=== PATIENT | female | born 1980 | race Two or more races ===

== ENCOUNTER 2018-06-26 12:27 | Inpatient (IN) | payer OTHER ==
[2018-06-26] MEDS ORDERED: CARBOPROST 250 MCG INJ IM ×2 (13:30→20:00)
[2018-06-26] MEDS ORDERED: OXYTOCIN 30 UNITS/LR 500 ML IV ×5 (13:30→20:00)
[2018-06-26] MEDS ORDERED: METHYLERGONOVINE 0.2 MG INJ IM ×2 (13:30→20:00)
[2018-06-26] MEDS ORDERED: MISOPROSTOL 200 MCG TAB PR ×2 (13:30→20:00)
[2018-06-26] MEDS ORDERED: CEFAZOLIN 2 GM/50 ML (PMX) 50 ML IV (13:30)
[2018-06-26 13:42] LABS: ADD MAN DIFF? NO
[2018-06-26 13:46] LABS: BASOPHILS % 0.3 % (0.0-2.0); EOSINOPHILS # 0.1 10^3/ul (0.0-0.5); LYMPHOCYTES # 2.3 10^3/ul (0.8-2.9); MEAN CORPUSCULAR HEMOGLOBIN 27.3 pg (29.0-33.0); MEAN CORPUSCULAR HGB CONC 31.4 g/dl (32.0-37.0); MEAN CORPUSCULAR VOLUME 86.8 fl (82.0-101.0); MEAN PLATELET VOLUME 10.7 fl (7.4-10.4); MONOCYTE # 0.7 10^3/ul (0.3-0.9); MONOCYTES % 4.9 % (0.0-11.0); NEUTROPHIL # 11.1 10^3/ul (1.6-7.5); NEUTROPHILS % 76.1 % (39.0-77.0); PLATELET COUNT 273 10^3/UL (140-415); RED BLOOD COUNT 4.03 10^6/ul (4.20-5.40); RED CELL DISTRIBUTION WIDTH 15.2 % (11.5-14.5)
[2018-06-26 13:46] LABS: WHITE BLOOD COUNT 14.6 10^3/ul (4.8-10.8)
[2018-06-26 14:11] LABS: INR 1.02; PARTIAL THROMBOPLASTIN TIME 26.5 Sec (23.0-35.0); PROTIME 13.5 Sec (11.9-14.9); PT RATIO 1.1
[2018-06-26] MEDS: LACTATED RINGER'S 1,000 ML IV ×3 (14:26→20:17)
[2018-06-26] MEDS ORDERED: METOCLOPRAMIDE 10 MG INJ (14:40)
[2018-06-26] MEDS ORDERED: KETOROLAC 30 MG INJ (14:40)
[2018-06-26] MEDS ORDERED: ONDANSETRON 4 MG INJ (14:40)
[2018-06-26] MEDS ORDERED: FENTAnyl 50 MCG/ML VIAL (15:10)
[2018-06-26] MEDS ORDERED: MIDAZOLAM 1 MG/ML 2 ML INJ (15:11)
[2018-06-26] MEDS ORDERED: PROPOFOL 20 ML ×3 (15:46→15:47)
[2018-06-26 16:17] LABS: RAPID PLASMA REAGIN NONREACTIVE (NR)
[2018-06-26] MEDS ORDERED: NALOXONE (0.4 MG/ML) INJ IV (16:30)
[2018-06-26] MEDS ORDERED: morphine 2 MG INJ IV ×3 (16:30)
[2018-06-26] MEDS ORDERED: ONDANSETRON 4 MG INJ IV ×2 (16:30)
[2018-06-26] MEDS ORDERED: morphine (1 MG/ML) 10ML SYRINGE IV ×3 (16:30)
[2018-06-26] MEDS ORDERED: METOCLOPRAMIDE 10 MG INJ IV (16:30)
[2018-06-26] MEDS ORDERED: KETOROLAC 30 MG INJ IV (16:30)
[2018-06-26] MEDS: HYDROmorphONE 2 MG/ML SYG IV (17:02)
[2018-06-26 17:06] LABS: HEPATITIS B SURFACE ANTIGEN NEGATIVE (NEGATIVE)
[2018-06-26] MEDS: SOD CHLORIDE 0.9% 1,000 ML IV (17:40)
[2018-06-26] MEDS: AZITHROMYCIN 500MG/NS (PMX) 250 ML IVPB (18:10)
[2018-06-26] MEDS: CEFAZOLIN 2 GM/50 ML (PMX) 50 ML IV (20:16)
[2018-06-26] MEDS: LANOLIN 7 GM TUBE TOP (20:16)
[2018-06-26] MEDS: SENNA/DOCUSATE NA (8.6MG/50MG) TAB PO (20:16)
[2018-06-26] MEDS: KETOROLAC 30 MG INJ IV (21:52)
[2018-06-26] MEDS: IBUPROFEN 800 MG TAB PO (22:00)
[2018-06-27] MEDS: CLINDAMYCIN 300 MG CAP PO ×6 (00:16→18:45)
[2018-06-27] MEDS: CEFAZOLIN 2 GM/50 ML (PMX) 50 ML IV ×2 (03:39→12:08)
[2018-06-27] MEDS: KETOROLAC 30 MG INJ IV ×2 (03:44→12:06)
[2018-06-27] MEDS: LACTATED RINGER'S 1,000 ML IV ×6 (05:27→21:56)
[2018-06-27] MEDS: DIPHENHYDRAMINE 50 MG INJ IV (05:35)
[2018-06-27] MEDS: IBUPROFEN 800 MG TAB PO ×3 (06:00→22:00)
[2018-06-27 08:34] LABS: ADD MAN DIFF? NO
[2018-06-27 08:42] LABS: BASOPHILS % 0.2 % (0.0-2.0); EOSINOPHILS # 0.1 10^3/ul (0.0-0.5); HEMATOCRIT 30.7 % (37.0-47.0); HEMOGLOBIN 9.6 g/dl (12.0-16.0); LYMPHOCYTES # 1.6 10^3/ul (0.8-2.9); LYMPHOCYTES % 12.2 % (15.0-51.0); MEAN CORPUSCULAR HEMOGLOBIN 27.7 pg (29.0-33.0); MEAN CORPUSCULAR HGB CONC 31.3 g/dl (32.0-37.0); MEAN CORPUSCULAR VOLUME 88.5 fl (82.0-101.0); MEAN PLATELET VOLUME 10.8 fl (7.4-10.4); MONOCYTE # 0.7 10^3/ul (0.3-0.9); MONOCYTES % 5.1 % (0.0-11.0); NEUTROPHIL # 10.5 10^3/ul (1.6-7.5); NEUTROPHILS % 80.7 % (39.0-77.0); PLATELET COUNT 221 10^3/UL (140-415); RED BLOOD COUNT 3.47 10^6/ul (4.20-5.40); RED CELL DISTRIBUTION WIDTH 15.7 % (11.5-14.5)
[2018-06-27] MEDS: SENNA/DOCUSATE NA (8.6MG/50MG) TAB PO ×2 (09:16→20:50)
[2018-06-27] MEDS: BISACODYL 10 MG SUPP PR (10:30)
[2018-06-27 15:37] LABS: ADD MAN DIFF? NO
[2018-06-27 15:40] LABS: WHITE BLOOD COUNT 13.9 10^3/ul (4.8-10.8)
[2018-06-27 15:40] LABS: BASOPHILS % 0.2 % (0.0-2.0); EOSINOPHILS # 0.1 10^3/ul (0.0-0.5); EOSINOPHILS % 0.9 % (0.0-7.0); HEMATOCRIT 31.1 % (37.0-47.0); HEMOGLOBIN 9.8 g/dl (12.0-16.0); LYMPHOCYTES # 1.5 10^3/ul (0.8-2.9); LYMPHOCYTES % 11.1 % (15.0-51.0); MEAN CORPUSCULAR HEMOGLOBIN 27.8 pg (29.0-33.0); MEAN CORPUSCULAR HGB CONC 31.5 g/dl (32.0-37.0); MEAN CORPUSCULAR VOLUME 88.1 fl (82.0-101.0); MEAN PLATELET VOLUME 10.9 fl (7.4-10.4); MONOCYTE # 0.7 10^3/ul (0.3-0.9); MONOCYTES % 5.2 % (0.0-11.0); NEUTROPHIL # 11.4 10^3/ul (1.6-7.5); NEUTROPHILS % 81.7 % (39.0-77.0); PLATELET COUNT 252 10^3/UL (140-415); RED BLOOD COUNT 3.53 10^6/ul (4.20-5.40); RED CELL DISTRIBUTION WIDTH 15.4 % (11.5-14.5)
[2018-06-27] MEDS: OXYCODONE/ACETAMINOPHEN (5/325) TAB PO ×2 (17:02→20:50)
[2018-06-28] MEDS: OXYCODONE/ACETAMINOPHEN (5/325) TAB PO ×3 (01:36→16:50)
[2018-06-28] MEDS: LACTATED RINGER'S 1,000 ML IV ×2 (03:39→05:56)
[2018-06-28] MEDS: NA PHOSPHATE/BIPHOS 133 ML ENEMA PR (05:51)
[2018-06-28] MEDS: IBUPROFEN 800 MG TAB PO ×3 (05:54→22:00)
[2018-06-28] MEDS: CLINDAMYCIN 300 MG CAP PO ×3 (05:54→12:37)
[2018-06-28] MEDS: SENNA/DOCUSATE NA (8.6MG/50MG) TAB PO ×2 (09:00→21:08)
[2018-06-28] MEDS: CIPROFLOXACIN 500 MG TAB PO (18:30)
[2018-06-28] MEDS: HYDROCODONE/APAP (5/325) TAB PO (21:09)
[2018-06-29] MEDS: OXYCODONE/ACETAMINOPHEN (5/325) TAB PO ×4 (01:15→16:13)
[2018-06-29] MEDS ORDERED: VITAMIN A & D 5 GM OINT PACKET TOP (02:26)
[2018-06-29] MEDS: CIPROFLOXACIN 500 MG TAB PO (05:41)
[2018-06-29] MEDS: IBUPROFEN 800 MG TAB PO ×2 (05:41→15:17)
[2018-06-29] MEDS: CLINDAMYCIN 300 MG CAP PO ×2 (05:52→11:13)
[2018-06-29 08:30] LABS: ADD MAN DIFF? NO
[2018-06-29 08:36] LABS: BASOPHILS % 0.4 % (0.0-2.0); EOSINOPHILS # 0.3 10^3/ul (0.0-0.5); EOSINOPHILS % 2.8 % (0.0-7.0); HEMATOCRIT 32.7 % (37.0-47.0); HEMOGLOBIN 10.1 g/dl (12.0-16.0); LYMPHOCYTES # 2.4 10^3/ul (0.8-2.9); LYMPHOCYTES % 22.2 % (15.0-51.0); MEAN CORPUSCULAR HEMOGLOBIN 27.7 pg (29.0-33.0); MEAN CORPUSCULAR HGB CONC 30.9 g/dl (32.0-37.0); MEAN CORPUSCULAR VOLUME 89.8 fl (82.0-101.0); MEAN PLATELET VOLUME 10.9 fl (7.4-10.4); MONOCYTE # 0.6 10^3/ul (0.3-0.9); MONOCYTES % 5.2 % (0.0-11.0); NEUTROPHIL # 7.4 10^3/ul (1.6-7.5); NEUTROPHILS % 68.1 % (39.0-77.0); PLATELET COUNT 268 10^3/UL (140-415); RED BLOOD COUNT 3.64 10^6/ul (4.20-5.40); RED CELL DISTRIBUTION WIDTH 15.4 % (11.5-14.5)
[2018-06-29 08:36] LABS: WHITE BLOOD COUNT 10.8 10^3/ul (4.8-10.8)
[2018-06-29 08:53] LABS: CREATININE 0.73 mg/dl (0.44-1.00)
[2018-06-29 08:53] LABS: BLOOD UREA NITROGEN 10 mg/dl (7-20)
[2018-06-29] MEDS: SENNA/DOCUSATE NA (8.6MG/50MG) TAB PO (09:00)
[2018-06-29] MEDS: MEASLES,MUMPS,RUBELLA VACCINE INJ SC* (09:00)
[2018-06-29] MEDS: DIPHTH/TET/ACEL PERTUSS (ADULT) 0.5 ML VIAL IM* (09:00)
== END 2018-06-29 17:30 | disposition home or self-care (01) | DRG 788 ==
LOC: L-D 12:27 → PP1 19:03
PROVIDERS: Obstetrics & Gynecology
PROC: 10D00Z1 Extraction of Products of Conception, Low, Open Approach (ICD-10-PCS; principal; 2018-06-26 14:00)
DX: O34.211 Maternal care for low transverse scar from previous cesarean delivery (principal); Z3A.39 39 weeks gestation of pregnancy; Z37.0 Single live birth
CPT/HCPCS: 82565; 84520; 85025; 85610; 85730; 86592; 86850; 86900; 86901; 87340; 88305; 90715; 99464